=== PATIENT | male | born 1985 | race Caucasian/White ===

== ENCOUNTER 2021-10-30 17:18 | Emergency (ER) | payer OTHER ==
[2021-10-30 19:21] LABS: BILIRUBIN NEGATIVE (NEGATIVE); BLOOD NEGATIVE Ery/uL (NEGATIVE); CLARITY CLEAR (CLEAR); COLOR YELLOW (YELLOW); GLUCOSE (U) NORMAL (NORMAL); LEUKOCYTES NEGATIVE Leu/uL (NEGATIVE); NITRITE NEGATIVE (NEGATIVE); PROTEIN NEGATIVE (NEGATIVE); SPECIFIC GRAVITY 1.015 (1.001-1.030); UROBILINOGEN 0.2 mg/dL (0.2-1.0); pH 5.5 (5.0-9.0)
[2021-10-30 19:22] LABS: AMPHETAMINES NEGATIVE (NEGATIVE); BARBITURATES NEGATIVE (NEGATIVE); ECSTASY (MDMA) NEGATIVE (NEGATIVE); MARIJUANA (THC) NEGATIVE (NEGATIVE); METHADONE NEGATIVE (NEGATIVE); OPIATES NEGATIVE (NEGATIVE); OXYCODONE NEGATIVE (NEGATIVE)
[2021-10-30 19:37] LABS: CORONAVIRUS 2019 SARS-COV-2 NEGATIVE (NEGATIVE); INFLUENZA A NAA NEGATIVE (NEGATIVE)
[2021-10-30 19:58] LABS: BASOPHIL 0.6 % (0-2); EOSINOPHIL 2.3 % (0-5); HCT 50.2 % (42.0-52.0); HGB 17.1 g/dl (13.2-18.0); LYMPHOCYTE 32.6 % (15-48); MCH 31.4 pg (25.0-31.0); MCHC 34.1 g/dL (32.0-36.0); MCV 92.1 fL (78.0-100.0); MONOCYTE 8.9 % (0-12); MPV 11.1 fL (6.0-9.5); NEUTROPHIL 55.2 % (41-80); NRBC 0; PLT 149 K/uL (150-400); RBC 5.45 M/uL (4.70-6.00); RDW 12.4 % (11.5-14.0); WBC 5.3 K/uL (4.0-10.5)
[2021-10-30 20:24] LABS: BUN 17 mg/dL (7-18); CHLORIDE 103 mmol/L (98-107); CO2 (BICARBONATE) 27 mmol/L (21-32); CREATININE 0.81 mg/dL (0.67-1.17); GLUCOSE 88 mg/dL (74-106); POTASSIUM 4.1 mmol/L (3.5-5.1)
== END 2021-10-30 22:19 | disposition home or self-care (01) ==
LOC: FER 17:18
PROVIDERS: Nurse Practitioner Family
DX: R07.89 Other chest pain (principal); R42 Dizziness and giddiness; I10 Essential (primary) hypertension; F17.210 Nicotine dependence, cigarettes, uncomplicated; Z20.822 Contact with and (suspected) exposure to COVID-19; Z28.310 Unvaccinated for COVID-19
CPT/HCPCS: 36415; 70450; 71045; 80048; 80305; 81003; 84484; 85025; 85379; 93005; U0002